=== PATIENT | male | born 1965 | race Caucasian/White ===

== ENCOUNTER 2021-04-05 16:43 | Emergency (ER) | payer OTHER ==
[2021-04-05] MEDS ORDERED: Zofran 4 MG/2 ML VIAL IV ONE (16:49)
[2021-04-05] MEDS ORDERED: Sodium Chloride 0.9% 1000 ML 1,000 ML IV SCH (17:00)
[2021-04-05] MEDS ORDERED: Sodium Chloride 0.9% 1000 ML 1,000 ML ONE (17:04)
[2021-04-05] MEDS ORDERED: Zofran 4 MG/2 ML VIAL ONE (17:04)
[2021-04-05] MEDS ORDERED: MORPHINE SULFATE 2 MG INJ ONE (17:04)
[2021-04-05] MEDS: MORPHINE SULFATE 2 MG INJ IV ONE ×2 (17:07→17:10)
[2021-04-05 17:09] LABS: Basophil (Absolute #) 0.01 (0-0.4); Eosinophil % 0.8 % (0.00-5.0); Eosinophil (Absolute #) 0.08 (0-0.5); Hematocrit 49.5 % (42-50); Hemoglobin 17.3 gm/dl (12.5-18.0); Lymphocyte (Absolute #) 0.56 (1.0-4.6); Lymphocytes % 5.9 % (24.0-44.0); Mean Cell Volume 86.8 fl (78-100); Mean Corpuscular Hemoglobin 30.4 pg (26-32); Mean Corpuscular Hgb Concent. 34.9 g/dl (32-36); Mean Platelet Volume 9.3 fl (7.5-11.0); Monocyte (Absolute #) 0.48 (0.0-1.3); Monocytes % 5.1 % (0.0-12.0); Neutrophil % 88.1 % (36.0-66.0); Platelet Count 207 K/mm3 (150-450); Red Cell Distribution Width 13.6 % (11.5-14.0); White Blood Count 9.4 K/mm3 (4.0-10.5)
--- NOTE | 2021-04-05 17:28 | ERPHSYRPT ---
- History of Present Illness Time Seen by Provider: 04/05/21 16:50 Historian: patient Exam Limitations: no limitations Patient Subjective Stated Complaint: pt here for abd pain off and on for a month now, has been having constipation and is on meds for it, nausea, Triage Nursing Assessment: pt alert, resp easy, skin w/d/p. abd distended and tender to touch, no edema noted Physician History: Patient is a 55-year-old male presents to our ED with complaints of abdominal pain. Patient has been experiencing intermittent abdominal pain for approximately 1 month. Patient was told that he has constipation. Patient currently in the constipation medications. Patient is here today because his pain is worse. Pain is primarily epigastrium. Pain associated with nausea. No vomiting. Symptoms are currently constant. Symptoms are moderate in intensity. No specific worsening improving factors. No associated chest pain or shortness of breath. No trauma. No fever. Patient voices no other complaints or concerns at this time. Timing/Duration: today Activities at Onset: none Quality: aching Abdominal Pain Onset Location: epigastric Pain Radiation: no radiation Severity of Pain-Max: moderate Severity of Pain-Current: mild Modifying Factors: Improves With: nothing Associated Symptoms: nausea, No headache, No heartburn, No neck pain, No vomiting, No weakness Previous symptoms: no prior history Allergies/Adverse Reactions: No Known Drug Allergies Allergy (Verified 04/05/21 17:01) Home Medications: Azelastine Nasal [Astelin Nasal] 1 ea DAILY 04/05/21 [History] Famotidine 20 mg [Pepcid 20 MG] 1 ea DAILY 04/05/21 [History] Lisinopril/Hydrochlorothiazide [Lisinopril-Hctz 10-12.5 mg Tab] 1 ea DAILY 03/16 04/05 [History] Loratadine 10 mg [Claritin 10 mg] 1 ea DAILY 04/05/21 [History] Omeprazole 1 ea DAILY 04/05/21 [History] Pravastatin Sodium 20 mg PO DAILY 04/05/21 [History] Sennosides [Senna Laxative] 2 ea DAILY 04/05/21 [History] Hx Tetanus, Diphtheria Vaccination/Date Given: Yes Hx Influenza Vaccination/Date Given: No Hx Pneumococcal Vaccination/Date Given: No Immunizations Up to Date: Yes Travel Risk - International Travel Have you traveled outside of the country in past 3 weeks: No - Coronavirus Screening Are you exhibiting any of the following symptoms?: No Close contact with a COVID-19 positive Pt in past 14-21 Days: No - Vaccine Status Have you recieved a Covid-19 vaccination: Yes [employer]: Moderna - Vaccination Dates Date of 2cond Vaccination (if applicable): 2020 - Review of Systems Constitutional: No Symptoms, No Fever, No Chills Eyes: No Symptoms Ears, Nose, & Throat: No Symptoms Respiratory: No Symptoms, No Cough, No Dyspnea Cardiac: No Symptoms, No Chest Pain, No Edema, No Syncope Abdominal/Gastrointestinal: No Symptoms, No Abdominal Pain, No Nausea, No Vomiting, No Diarrhea Genitourinary Symptoms: No Symptoms, No Dysuria Musculoskeletal: No Symptoms, No Back Pain, No Neck Pain Skin: No Symptoms, No Rash Neurological: No Symptoms, No Dizziness, No Focal Weakness, No Sensory Changes Psychological: No Symptoms Endocrine: No Symptoms Hematologic/Lymphatic: No Symptoms Immunological/Allergic: No Symptoms All Other Systems: Reviewed and Negative - Past Medical History Pertinent Past Medical History: No Neurological History: No Pertinent History ENT History: No Pertinent History Cardiac History: Hypertension Respiratory History: Sleep Apnea Endocrine Medical History: No Pertinent History Musculoskeletal History: Osteoarthritis GI Medical History: GERD History: No Pertinent History Psycho-Social History: No Pertinent History Male Reproductive Disorders: No Pertinent History Other Medical History: LYMES MENINGITIS - Past Surgical History Past Surgical History: Yes Neuro Surgical History: No Pertinent History Cardiac: No Pertinent History Respiratory: No Pertinent History Gastrointestinal: Appendectomy Genitourinary: No Pertinent History Musculoskeletal: No Pertinent History Male Surgical History: Vasectomy, Other Other Surgical History: VASECTOMY REVERSAL - Social History Smoking Status: Never smoker Exposure to second hand smoke: Yes Drug Use: none Patient Lives Alone: No - Nursing Vital Signs Nursing Vital Signs: Initial Vital Signs Temperature 99.1 F 04/05/21 16:49 Pulse Rate 120 H 04/05/21 16:49 Respiratory Rate 18 04/05/21 16:49 Blood Pressure 130/96 04/05/21 16:49 O2 Sat by Pulse Oximetry 98 04/05/21 16:49 Pain Scale Pain Intensity 6 - Physical Exam General Appearance: no apparent distress, alert Eye Exam: PERRL/EOMI, eyes nml inspection Ears, Nose, Throat Exam: normal ENT inspection, pharynx normal, moist mucous membranes Neck Exam: normal inspection, non-tender, supple, full range of motion Respiratory Exam: normal breath sounds, lungs clear, No respiratory distress Cardiovascular Exam: regular rate/rhythm, normal heart sounds Gastrointestinal/Abdomen Exam: soft, other (Distended abdomen. Mildly diffuse tenderness in the epigastrium. No rebound no peritoneal signs.), No tenderness, No mass Back Exam: normal inspection, normal range of motion, No CVA tenderness, No vertebral tenderness Extremity Exam: normal inspection, normal range of motion, pelvis stable Neurologic Exam: alert, oriented x 3, cooperative, normal mood/affect, nml cerebellar function, sensation nml, No motor deficits Skin Exam: normal color, warm, dry SpO2 Interpretation: normal SpO2: 98 O2 Delivery: Room Air - Course Nursing assessment & vital signs reviewed: Yes EKG Interpreted by Me: RATE, Sinus Tach (125), Right [place] Deviation, NORMAL INTERVALS, NORMAL QRS - CT Exams Abdomen/Pelvis CT Interpretation: Tele-radiologist Report (No comps. Fluid distended stomach and lesser degree small bowel loops ileus versus gastroenteritis. Tiny mid abdomen mesenteric nodes with stranding favors mesenteric adenitis. 1 cm hepatic cyst and 14.4 cm splenomegaly. Minimal descending sigmoid diverticulosis.) Ordered Tests: Active Orders 24 hr Category Date Time Status IV Insertion STAT Care 04/05/21 16:49 Active ABDOMEN AND PELVIS W CONTRAST [CT] Stat Exams 04/05/21 16:49 Taken CBC W DIFF Stat Lab 04/05/21 17:07 Completed CMP Stat Lab 04/05/21 17:07 Completed LIPASE Stat Lab 04/05/21 17:07 Completed TROPONIN Q3H Lab 04/05/21 17:07 Completed TROPONIN Q3H Lab 04/05/21 20:00 Ordered TROPONIN Q3H Lab 04/05/21 23:00 Ordered TROPONIN Q3H Lab 04/06/21 02:00 Ordered TROPONIN Q3H Lab 04/06/21 05:00 Ordered UA W/RFX UR CULTURE Stat Lab 04/05/21 17:03 Completed Medication Summary Generic Name Dose Route Start Last Admin Trade Name Freq PRN Reason Stop Dose Admin Sodium Chloride 1,000 mls @ 100 mls/hr 04/05/21 17:00 04/05/21 18:08 Sodium Chloride 0.9% 1000 Ml IV 05/05/21 16:59 Infused .Q10H PERLITA Infusion Discontinued Medications Generic Name Dose Route Start Last Admin Trade Name Laura PRN Reason Stop Dose Admin Morphine Sulfate 2 mg 04/05/21 16:49 04/05/21 17:10 Morphine Sulfate 2 Mg/Ml Inj IV 04/05/21 16:50 Not Given STAT ONE Morphine Sulfate Confirm 04/05/21 17:04 Morphine Sulfate 2 Mg/Ml Inj Administered 04/05/21 17:05 Dose 2 mg .ROUTE .STK-MED ONE Ondansetron HCl 4 mg 04/05/21 16:49 04/05/21 17:06 Ondansetron Hcl 4 Mg/2 Ml Vial IV 04/05/21 16:50 4 mg STAT ONE Administration Ondansetron HCl Confirm 04/05/21 17:04 Ondansetron Hcl 4 Mg/2 Ml Vial Administered 04/05/21 17:05 Dose 4 mg .ROUTE .STK-MED ONE Lab/Rad Data: Laboratory Result Diagrams 04/05/21 17:07 04/05/21 17:07 Laboratory Results 04/05/21 04/05/21 04/05/21 Range/Units 17:07 17:07 17:07 WBC 9.4 (4.0-10.5) K/mm3 RBC 5.70 H (4.1-5.6) M/mm3 Hgb 17.3 (12.5-18.0) gm/dl Hct 49.5 (42-50) % MCV 86.8 (78-100) fl MCH 30.4 (26-32) pg MCHC 34.9 (32-36) g/dl RDW 13.6 (11.5-14.0) % Plt Count 207 (150-450) K/mm3 MPV 9.3 (7.5-11.0) fl Gran % 88.1 H (36.0-66.0) % Eos # (Auto) 0.08 (0-0.5) Absolute Lymphs (auto) 0.56 L (1.0-4.6) Absolute Monos (auto) 0.48 (0.0-1.3) Lymphocytes % 5.9 L (24.0-44.0) % Monocytes % 5.1 (0.0-12.0) % Eosinophils % 0.8 (0.00-5.0) % Basophils % 0.1 (0.0-0.4) % Absolute Granulocytes 8.30 H (1.4-6.9) Basophils # 0.01 (0-0.4) Sodium 137 (137-145) mmol/L Potassium 4.2 (3.5-5.1) mmol/L Chloride 101 (98-107) mmol/L Carbon Dioxide 23 (22-30) mmol/L Anion Gap 16.9 H (5-15) MEQ/L BUN 24 H (9-20) mg/dL Creatinine 1.15 (0.66-1.25) mg/dL Estimated GFR > 60.0 ML/MIN Glucose 107 H (74-106) mg/dL Calcium 9.7 (8.4-10.2) mg/dL Total Bilirubin 0.90 (0.2-1.3) mg/dL AST 51 (17-59) U/L ALT 63 H (0-50) U/L Alkaline Phosphatase 106 (38-126) U/L Troponin I < 0.012 (0.000-0.034) ng/mL Serum Total Protein 8.1 (6.3-8.2) g/dL Albumin 4.9 (3.5-5.0) g/dL Lipase 70 (23-300) U/L Urine Color (YELLOW) Urine Appearance (CLEAR) Urine pH (5-6) Ur Specific [place] (1.005-1.025) Urine Protein (Negative) Urine Ketones (NEGATIVE) Urine Blood (0-5) Mike/ul Urine Nitrite (NEGATIVE) Urine Bilirubin (NEGATIVE) Urine Urobilinogen (0-1) mg/dL Ur Leukocyte Esterase (NEGATIVE) Urine WBC (Auto) (0-5) /HPF Urine RBC (Auto) (0-2) /HPF U Epithel Cells (Auto) (FEW) /HPF Urine Bacteria (Auto) (NEGATIVE) /HPF Urine Mucus (Auto) (NEGATIVE) /HPF Urine Culture Reflexed (NO) Urine Glucose (NEGATIVE) mg/dL 04/05/21 Range/Units 17:03 WBC (4.0-10.5) K/mm3 RBC (4.1-5.6) M/mm3 Hgb (12.5-18.0) gm/dl Hct (42-50) % MCV (78-100) fl MCH (26-32) pg MCHC (32-36) g/dl RDW (11.5-14.0) % Plt Count (150-450) K/mm3 MPV (7.5-11.0) fl Gran % (36.0-66.0) % Eos # (Auto) (0-0.5) Absolute Lymphs (auto) (1.0-4.6) Absolute Monos (auto) (0.0-1.3) Lymphocytes % (24.0-44.0) % Monocytes % (0.0-12.0) % Eosinophils % (0.00-5.0) % Basophils % (0.0-0.4) % Absolute Granulocytes (1.4-6.9) Basophils # (0-0.4) Sodium (137-145) mmol/L Potassium (3.5-5.1) mmol/L Chloride (98-107) mmol/L Carbon Dioxide (22-30) mmol/L Anion Gap (5-15) MEQ/L BUN (9-20) mg/dL Creatinine (0.66-1.25) mg/dL Estimated GFR ML/MIN Glucose (74-106) mg/dL Calcium (8.4-10.2) mg/dL Total Bilirubin (0.2-1.3) mg/dL AST (17-59) U/L ALT (0-50) U/L Alkaline Phosphatase (38-126) U/L Troponin I (0.000-0.034) ng/mL Serum Total Protein (6.3-8.2) g/dL Albumin (3.5-5.0) g/dL Lipase (23-300) U/L Urine Color YELLOW (YELLOW) Urine Appearance CLEAR (CLEAR) Urine pH 6.0 (5-6) Ur Specific [place] 1.009 (1.005-1.025) Urine Protein NEGATIVE (Negative) Urine Ketones NEGATIVE (NEGATIVE) Urine Blood NEGATIVE (0-5) Mike/ul Urine Nitrite NEGATIVE (NEGATIVE) Urine Bilirubin NEGATIVE (NEGATIVE) Urine Urobilinogen NEGATIVE (0-1) mg/dL Ur Leukocyte Esterase NEGATIVE (NEGATIVE) Urine WBC (Auto) 0-2 (0-5) /HPF Urine RBC (Auto) NONE SEEN (0-2) /HPF U Epithel Cells (Auto) NONE (FEW) /HPF Urine Bacteria (Auto) NONE (NEGATIVE) /HPF Urine Mucus (Auto) SLIGHT (NEGATIVE) /HPF Urine Culture Reflexed NO (NO) Urine Glucose NEGATIVE (NEGATIVE) mg/dL - Progress Progress: improved Progress Note: Work-up reveals a distended stomach and to lesser degree small bowel. Likely ileus versus gastroenteritis. There is some mesenteric adenitis as well. Hepatic cyst and splenomegaly. Patient tolerated p.o. Patient is ready for discharge. A prescription for Zofran forwarded to patient's pharmacy. Patient currently has an appointment scheduled with his primary care doctor. Patient will follow up tomorrow as scheduled. Patient voices no other complaints concerns at this time. Portions of this note were created with voice recognition technology. There may be grammatical, spelling, punctuation or sound alike errors 04/05/21 19:13 Counseled pt/family regarding: lab results, diagnosis, need for follow-up, rad results - Departure Departure Disposition: Home Clinical Impression: Ileus, Gastroenteritis, Mesenteric adenitis, Hepatic cyst, Splenomegaly, Diver ticulosis Condition: Stable Critical Care Time: No Referrals: ANDREW ROBERTS MD [Primary Care Provider] - Follow up/PCP as directed Additional Instructions: Discharge/Care Plan AUSTIN HEWITT was seen on 04/05/21 in the Emergency Room. The patient was counseled regarding Diagnosis,Lab results, Imaging studies, need for follow up and when to return to the Emergency Room. Prescriptions given: Discharge Note I have spoken with the patient and/or caregivers. I have explained the patient's condition, diagnosis and treatment plan based on the information available to me at this time. I have answered the patient's and/or caregiver's questions and addressed any concerns. The patient and/or caregivers have as good understanding of the patient's diagnosis, condition and treatment plan as can be expected at this point. The vital signs have been stable. The patient's condition is stable and appropriate for discharge from the emergency department. The patient will pursue further outpatient evaluation with the primary care physician or other designated or consulting physician as outlined in the discharge instructions. The patient and/or caregivers are agreeable to this plan of care and follow-up instructions have been explained in detail. The patient and/or caregivers have received these instruction. The patient/and or caregivers are aware that any significant change in condition or worsening of symptoms should prompt an immediate return to this or the closest emergency department or call 911.
[2021-04-05 17:34] LABS: ALBUMIN 4.9 g/dL (3.5-5.0); ALKALINE PHOSPHATASE 106 U/L (38-126); ANION GAP 16.9 MEQ/L (5-15); BLOOD UREA NITROGEN 24 mg/dL (9-20); CHLORIDE 101 mmol/L (98-107); Calcium 9.7 mg/dL (8.4-10.2); Carbon Dioxide 23 mmol/L (22-30); Creatinine 1 1.15 mg/dL (0.66-1.25); EST GLOMERULAR FILTRATION RATE > 60.0 ML/MIN; Glucose 107 mg/dL (74-106); LIPASE 70 U/L (23-300); Potassium 4.2 mmol/L (3.5-5.1); SGOT/AST 51 U/L (17-59); SGPT/ALT 63 U/L (0-50); SODIUM 137 mmol/L (137-145); Total Protein 8.1 g/dL (6.3-8.2)
[2021-04-05 17:35] LABS: Appearance CLEAR (CLEAR); Bilirubin NEGATIVE (NEGATIVE); Blood NEGATIVE Ery/ul (0-5); Glucose NEGATIVE (NEGATIVE); Ketones NEGATIVE (NEGATIVE); Leukocyte Esterase NEGATIVE (NEGATIVE); Mucus SLIGHT /HPF (NEGATIVE); Nitrite NEGATIVE (NEGATIVE); Protein,Urine Dip NEGATIVE (Negative); Specific Gravity 1.009 (1.005-1.025); Urobilinogen NEGATIVE mg/dL (0-1); WBC 0-2 /HPF (0-5)
[2021-04-05 17:47] LABS: RBC NONE SEEN /HPF (0-2)
[2021-04-05 19:08] VITALS: O2SAT 98
[2021-04-05 19:38] VITALS: BP 120/90; PULSE 98
--- NOTE | 2021-04-06 08:35 | XRAY ---
Indication: Abdomen pain, bloating, and constipation. Multiple contiguous images obtained through the abdomen and pelvis using 100 cc Isovue 370 contrast. Comparison: None Lung bases hyperinflated and clear. Heart not enlarged. Stomach is moderately fluid distended and small bowel loops are mildly fluid distended with fluid leveling, ileus versus gastroenteritis. No free fluid/air. Normal appendix. Colon demonstrates little to no fecal debris with minimal descending and sigmoid diverticulosis. Several subcentimeter mid abdomen mesenteric nodes with minimal stranding favoring adenitis. Inferior right lobe the liver demonstrates 1 cm cyst. Spleen is enlarged measuring 14.4 cm. Remaining liver, gallbladder, pancreas, spleen, adrenal glands, kidneys, ureters, and bladder are unremarkable. Minimal scattered aortoiliac calcifications. No AAA or pathologic retroperitoneal lymphadenopathy. Osseous structures intact with mild degenerative changes throughout the thoracal lumbar spine. Impression: 1. Fluid distended stomach and small bowel loops with fluid leveling, ileus versus gastroenteritis. 2. Small mid abdomen mesenteric nodes with stranding favoring mesenteric adenitis. 2. Incidental small hepatic cyst, splenomegaly, and chronic bony findings.
== END 2021-04-05 19:41 | disposition home or self-care (01) ==
LOC: ED 16:43
DX: K56.7 Ileus, unspecified (principal); K52.9 Noninfective gastroenteritis and colitis, unspecified; I88.0 Nonspecific mesenteric lymphadenitis; K76.89 Other specified diseases of liver; R16.1 Splenomegaly, not elsewhere classified; K57.30 Diverticulosis of large intestine without perforation or abscess without bleeding; R11.0 Nausea; I10 Essential (primary) hypertension; K21.9 Gastro-esophageal reflux disease without esophagitis; Z79.899 Other long term (current) drug therapy
CPT/HCPCS: 36000; 36415; 74177; 80053; 81001; 83690; 84484; 85025; 96374; 99284; J2270; J2405